=== PATIENT | male | born 1990 | race Caucasian/White ===

== ENCOUNTER 2017-12-03 19:49 | Inpatient (IN) | payer OTHER ==
[2017-12-03 21:09] LABS: ABS Basophils 0.1 10^3/ul (0-0.2); ABS Eosinophils 0.2 10^3/ul (0-0.6); ABS Monocytes 0.8 10^3/ul (0-0.8); ABS Neutrophils 3.8 10^3/ul (1.5-7.7); ABS Nucleated RBC 0 10^3/ul; Eosinophil % 2.4 % (0-6); Hematocrit 40 % (42-52); Hemoglobin 13.7 g/dl (14.0-18.0); Lymphocyte % 38.4 % (25-47); Mean Corpuscular HGB Conc 34 g/dl (31-36); Mean Corpuscular Hemoglobin 29 pg (27-31); Mean Corpuscular Volume 86 fL (80-94); Mean Platelet Volume 8 um3 (7.4-10.4); Nucleated Red Blood Cells % 0; Platelet Count 274 10^3/ul (150-450); Red Blood Count 4.66 10^6/ul (4.0-5.4); Red Cell Distribution Width 13 % (10.5-15); White Blood Count 7.8 10^3/ul (3.5-10.8)
[2017-12-03 21:29] LABS: EGFR Non-African American 91.4 (>60)
--- NOTE | 2017-12-04 06:30 | ED ---
Jameel Truong Tecjoon, scribed for Mare Osborne MD on 12/04/17 at 0629 . Progress - Consult/PCP Time Called: 04:25 Course/Dx - Course Course Of Treatment: Patient requires a MH reevaluation. Patient will be signed out to Dr. Caba at end of shift. - Diagnoses Provider Diagnoses: Suicidal ideations The documentation as recorded by the Jameel trotter Tecjoon accurately reflects the service I personally performed and the decisions made by [place] sharma Abdul, MD.
[2017-12-04] MEDS ORDERED: Gabapentin CAP(*) 300 MG PO ONE (09:43)
[2017-12-04] MEDS ORDERED: Nicotine GUM* 2 MG ONE (10:12)
[2017-12-04] MEDS ORDERED: FLUoxetine CAP* 10 MG PO ONE (11:23)
[2017-12-04] MEDS ORDERED: Acetaminophen TAB* 325 MG PO ONE (13:37)
--- NOTE | 2017-12-04 20:29 | HP ---
HISTORY AND PHYSICAL: DATE OF ADMISSION: 12/04/17 IDENTIFYING DATA: Nahum is a 27-year-old single unemployed male who came to the emergency room department last night complaining of suicidal ideations and a vague plan. He was at [facility] for a rehab program, but did not like it and became suicidal. This is his first psychiatric hospitalization in this hospital. CHIEF COMPLAINT: "I have been contemplating to overdose and kill myself, but I don't want to do it." HISTORY OF PRESENT ILLNESS: Nahum was discharged from [facility]'s inpatient unit a couple of weeks ago and was sent to [facility] for drug and alcohol rehab program. Nahum has an extensive history of heroin dependence and had gone through at least 11 inpatient rehabs and failed each time. He also reports of ongoing mood problems with both ups and downs as he describes. There are times that he becomes hypomanic with racing thoughts, impulsive intrusive behaviors and at times going back to doing IV heroin at the height of his hypomanic episode. These episodes are always followed by symptoms reminiscent of depression, which he has been experiencing since he was discharged from [facility]'s inpatient unit. He thinks his medications are not adequate enough to control his mood symptoms. Nahum reports that his life has been a mess with loss of money, which he gets as a student loan. His girlfriend left him because she could not handle him and he has no one to turn to or nowhere to go. In that respect, he does not see any purpose of living any longer. PAST PSYCHIATRIC HISTORY: At least 1 prior psychiatric hospitalization at [facility] a couple of weeks ago and 11 inpatient drug and alcohol rehabs. He was discharged on 30 mg of Prozac and 5 mg of Zyprexa. PAST MEDICAL HISTORY: Unremarkable. ALLERGIES: No known drug allergies. FAMILY HISTORY: Unremarkable. PERSONAL AND SOCIAL HISTORY: Nahum graduated from high school and entered college. He almost finished one semester; however, because of his drug problem he had to discontinue. He had a relationship, which also is in jeopardy because of his intense mood dysregulation and drug use. He denies any legal problems. PHYSICAL EXAMINATION Physical exam was not done as I have evaluated him in the flex space and I do not see any documented physical exam done in the emergency room either, so that needs to be taken care of when he comes to the unit by someone during the day time. LABORATORY DATA: Included CBC with differential, CMP, urinalysis, urine drug screen; everything is unremarkable. Tox screen was negative for drugs and alcohol. SUMMARY: This 27-year-old male with extensive history of IV drug use , 11 failed inpatient rehab programs and at least one known psychiatric hospitalization last month at [facility], presented to the [facility] ED from [facility] complaining of suicidal ideation and a plan. DIAGNOSTIC IMPRESSION: MENTAL HEALTH DIAGNOSIS: Unspecified mood disorder, rule out bipolar disorder, opiate use disorder, rule out substance-induced mood disorder. TREATMENT PLAN: I finally decided to admit Nahum to the inpatient psychiatric unit for his safety, diagnostic clarification and an appropriate discharge plan. My plan is to continue him on his discharge medications from [facility] and titrate the doses up as he tolerates. His code status will remain full. When he comes to the unit, supportive milieu, individual and group therapy will be initiated and he will be encouraged to participate. In my opinion, with good control of his mood symptoms he might be able to participate in an appropriate rehab program, which should be longer than what he had in the past. [id number]/CPS #: [id number]
[2017-12-04] MEDS ORDERED: Gabapentin CAP(*) 300 MG ONE (22:33)
[2017-12-04] MEDS ORDERED: OLANzapine TAB* 10 MG ONE (22:33)
[2017-12-04] MEDS ORDERED: Mouth Piece, Nicotine* 1 EACH CARTRIDGE INH SCH (22:53)
[2017-12-04] MEDS ORDERED: Al Hydrox/Mg Hydrox/Simet LIQ* 30 ML UDC PO PRN (22:53)
[2017-12-04] MEDS ORDERED: Mouth Piece, Nicotine* 1 EACH CARTRIDGE ONE (23:25)
[2017-12-04] MEDS: Nicotine Inhaler* 10 MG AMP INH PRN (23:26)
[2017-12-05] MEDS: Gabapentin CAP(*) 300 MG PO SCH ×4 (08:30→21:22)
[2017-12-05] MEDS: FLUoxetine CAP* 20 MG PO SCH (08:30)
[2017-12-05] MEDS: Vitamin THERAPEUTIC TAB PO SCH (08:30)
[2017-12-05] MEDS: Nicotine PATCH 21 MG/24 HR* PATCH TRANSDERM SCH (08:31)
--- NOTE | 2017-12-05 13:12 | PN ---
Subjective - Subjective Service Type: 21328 Hosp care 25 min moderate complexity Subjective: Met with patient to introduce myself and admit him to my service. He is tangential and distractible. He reports frustration with [facility] for boring lectures and ADHD not be treated. He states he had a first dose of Vivitrol IM on November 04. He states this has been helpful in regards to cravings for heroin. He reports his last heroin use was oct 11, his last crack cocaine use was on nov 12 and last marijuana use on nov 13. We discuss his motivation for recovery, which is relatively weak. Physical Exam completed with Karen Galvez ophthalmic medical technician present: PHYSCIAL EXAM: GENERAL APPEARANCE: Well appearing and well nourished. HEENT: Head and face, normal head and face inspection. Eyes, positive EOMI, PERRL. Conjunctivae clear. NECK: Supple. Full ROM. Trachea midline. RESPIRATORY: Lung sounds clear to auscultation. Breath sounds present. CARDIOVASCULAR: Heart, regular rate and rhythm. Pulses are symmetrical in both upper and lower extremities. MUSCULOSKELETAL: Normal strength. ROM intact. NEUROLOGICAL: Normal sensory, motor intact. Alert and oriented x3 and normal gait. Cranial nerves II-XII grossly intact. Cerebellar function intact. SKIN: Warm, dry. Color reflects adequate perfusion. Objective - Appearance Appearance: Well Developed/Nourished Dysmorphic Features: No Hygiene: Normal Grooming: Well Kept - Behavior Psychomotor Activities: Normal Exhibits Abnormal Movement: No - Attitude and Relatedness Attitude and Relatedness: Superficially Cooperative Eye Contact: Fair - Speech Quality: Unpressured Latencies: Normal Quantity: Appropriate - Mood Patient's Decription of Mood: "Okay" - Affect Observed Affect: Expansive Affect Consistent with: Euphoria - Thought Process Patient's Thought Process: Tangential Thought Content: Yes Suicidal Planning, No Passive Wish, No Homicidal Ideation, No Paranoid Ideation - Sensorium Experiencing Hallucinations: No, Sensorium is Clear Type of Hallucinations: Visual: No, Auditory: No, Command: No - Level of Consciousness Level of Consciousness: Alert - Impulse Control Impulse Control: Tenuous - Insight and Judgement Insight and Judgement: Fair - Group Participation Particating in Group Activities: Yes - Medication Management Medication Management Adherence: Yes Assessment - Assessment Merits Inpatient Hospitalization: For Immediate Safety, For Stabilization Inpatient DSM-IV Dx: unspecified bipolar d/o; opiate use d/o, in early remission ; cocaine use d/o, in early remission; cannabis use d/o, in early remission; tobacco use d/o Clinical Impression: 27yo white male, single, resident of [facility] who presented to ED with suicidal ideation. He is responding well to medication titration and will be discharge back to [facility] when stabilized. Plan - Plan Treatment Plan: Name: VIRY GUPTA Birthdate: 1990 [id number] Continued Medication Management: Continue Outpt Medication Medications: Current Medications Acetaminophen (Tylenol Tab*) 650 mg PO Q4H PRN PRN Reason: PAIN or TEMP > 101 F Al Hydrox/Mg Hydrox/Simethicone (Maalox Plus*) 30 ml PO Q4H PRN PRN Reason: INDIGESTION Device (Nicotine Mouth Piece*) 1 each INH .CARTRIDGE [facility] Last Admin: 12/04/17 23:26 Dose: 1 each Fluoxetine HCl (Prozac Cap*) 40 mg PO DAILY [facility] Last Admin: 12/05/17 08:30 Dose: 40 mg Gabapentin (Neurontin Cap(*)) 300 mg PO TID [facility] Last Admin: 12/05/17 13:03 Dose: 300 mg Multivitamins (Theragran Tab*) 1 tab PO DAILY [facility] Last Admin: 12/05/17 08:30 Dose: 1 tab Nicotine (Nicotine Inhaler*) 10 mg INH Q2H PRN PRN Reason: CRAVING Last Admin: 12/04/17 23:26 Dose: 10 mg Nicotine (Nicotine Patch 21 Mg/24 Hr*) 1 patch TRANSDERM DAILY [facility] Last Admin: 12/05/17 08:31 Dose: 1 patch Nicotine Polacrilex (Nicotine Gum*) 2 mg PO Q2H PRN PRN Reason: CRAVING Olanzapine (Zyprexa Tab*) 10 mg PO BEDTIME [facility] Pharmacy Profile Note (Nicotine Patch Removal Note*) 1 note PATCH OFF 2100 [facility] - Discharge Plan Discharge Plan: Drug/Alcohol Rehab Outpatient Program: [facility] inpatient
[2017-12-05] MEDS ORDERED: Naltrexone TAB* 50 MG TAB PO SCH (14:00)
[2017-12-05] MEDS ORDERED: Naltrexone INJ 380 MG IM ONE (15:00)
[2017-12-05] MEDS: OLANzapine TAB* 10 MG PO SCH ×2 (15:52→21:22)
[2017-12-05] MEDS: Acetaminophen TAB* 325 MG PO PRN (16:27)
[2017-12-05] MEDS: Nicotine GUM* 2 MG PO PRN (17:24)
[2017-12-05] MEDS: Nicotine Patch Removal NOTE PATCH OFF SCH (21:21)
[2017-12-05] MEDS: Nicotine Inhaler* 10 MG AMP INH PRN (21:23)
[2017-12-06] MEDS: Gabapentin CAP(*) 300 MG PO SCH ×3 (08:41→20:18)
[2017-12-06] MEDS: Nicotine PATCH 21 MG/24 HR* PATCH TRANSDERM SCH (08:42)
[2017-12-06] MEDS: FLUoxetine CAP* 20 MG PO SCH (08:42)
[2017-12-06] MEDS: Vitamin THERAPEUTIC TAB PO SCH (08:42)
--- NOTE | 2017-12-06 12:02 | PN ---
Subjective - Subjective Service Type: 42311 Hosp care 15 min low complexity Subjective: Patient reports "When i'm alone, I get really down." He endorses automatic negative thoughts. He states he is lamenting all of the things he lost since relapsing. 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 He states he would like to continue with recovery "until I like it." He has plans to complete [facility] then move to a retirement house near [place]. Objective - Appearance Appearance: Well Developed/Nourished Dysmorphic Features: No Hygiene: Normal Grooming: Well Kept - Behavior Psychomotor Activities: Normal Exhibits Abnormal Movement: No - Attitude and Relatedness Attitude and Relatedness: Cooperative Eye Contact: Good - Speech Quality: Unpressured Latencies: Normal Quantity: Appropriate - Mood Patient's Decription of Mood: "Okay" - Affect Observed Affect: Good Affect Consistent with: Euthymia - Thought Process Patient's Thought Process: Coherent, Goal Directed Thought Content: No Passive Wish, No Suicidal Planning, No Homicidal Ideation, No Paranoid Ideation - Sensorium Experiencing Hallucinations: No, Sensorium is Clear Type of Hallucinations: Visual: No, Auditory: No, Command: No - Level of Consciousness Level of Consciousness: Alert Orientation: Yes Intact, Yes Orientated to Time, Yes Orientated to Place, Yes Orientated to Person - Impulse Control Impulse Control: Tenuous - Insight and Judgement Insight and Judgement: Fair - Group Participation Particating in Group Activities: Yes - Medication Management Medication Management Adherence: Yes Assessment - Assessment Merits Inpatient Hospitalization: For Immediate Safety, For Stabilization, Consolidate Improvements Inpatient DSM-IV Dx: unspecified bipolar d/o; opiate use d/o, in early remission ; cocaine use d/o, in early remission; cannabis use d/o, in early remission; tobacco use d/o Clinical Impression: 27yo white male, single, resident of [facility] who presented to ED with suicidal ideation. He is responding well to medication titration and will be discharge back to [facility] when stabilized. Plan - Plan Treatment Plan: Name: VIRY GUPTA Birthdate: 1990 [id number] continue acute intensive psychiatric treatment. decrease to q30min observation and allow staff pass and computer use. Continued Medication Management: Continue Outpt Medication Medications: Current Medications Acetaminophen (Tylenol Tab*) 650 mg PO Q4H PRN PRN Reason: PAIN or TEMP > 101 F Last Admin: 12/05/17 16:27 Dose: 650 mg Al Hydrox/Mg Hydrox/Simethicone (Maalox Plus*) 30 ml PO Q4H PRN PRN Reason: INDIGESTION Device (Nicotine Mouth Piece*) 1 each INH .CARTRIDGE [facility] Last Admin: 12/04/17 23:26 Dose: 1 each Fluoxetine HCl (Prozac Cap*) 40 mg PO DAILY [facility] Last Admin: 12/06/17 08:42 Dose: 40 mg Gabapentin (Neurontin Cap(*)) 300 mg PO TID [facility] Last Admin: 12/06/17 08:41 Dose: 300 mg Multivitamins (Theragran Tab*) 1 tab PO DAILY [facility] Last Admin: 12/06/17 08:42 Dose: 1 tab Nicotine (Nicotine Inhaler*) 10 mg INH Q2H PRN PRN Reason: CRAVING Last Admin: 12/05/17 21:23 Dose: 10 mg Nicotine (Nicotine Patch 21 Mg/24 Hr*) 1 patch TRANSDERM DAILY [facility] Last Admin: 12/06/17 08:42 Dose: 1 patch Nicotine Polacrilex (Nicotine Gum*) 2 mg PO Q2H PRN PRN Reason: CRAVING Last Admin: 12/05/17 17:24 Dose: 2 mg Olanzapine (Zyprexa Tab*) 10 mg PO BEDTIME [facility] Last Admin: 12/05/17 21:22 Dose: 10 mg Pharmacy Profile Note (Nicotine Patch Removal Note*) 1 note PATCH OFF 2100 [facility] Last Admin: 12/05/17 21:21 Dose: 1 note - Discharge Plan Discharge Plan: Drug/Alcohol Rehab Outpatient Program: [facility] inpatient
[2017-12-06] MEDS: Acetaminophen TAB* 325 MG PO PRN (12:16)
[2017-12-06] MEDS: OLANzapine TAB* 10 MG PO SCH (20:19)
[2017-12-06] MEDS: Nicotine GUM* 2 MG PO PRN (20:43)
[2017-12-06] MEDS: Nicotine Inhaler* 10 MG AMP INH PRN (20:43)
[2017-12-06] MEDS: Nicotine Patch Removal NOTE PATCH OFF SCH (21:36)
[2017-12-07] MEDS: Gabapentin CAP(*) 300 MG PO SCH ×3 (08:37→20:00)
[2017-12-07] MEDS: Vitamin THERAPEUTIC TAB PO SCH (08:38)
[2017-12-07] MEDS: FLUoxetine CAP* 20 MG PO SCH (08:38)
[2017-12-07] MEDS: Nicotine PATCH 21 MG/24 HR* PATCH TRANSDERM SCH (08:39)
--- NOTE | 2017-12-07 13:08 | PN ---
MHU: Group Therapy Note - Service Type Service Type: 28154 Group Psychotherapy - Cognitive Behavioral Group Therapy ( CBT):Patient was attentive and participatory in CBT programming this morning, and remained in good behavioral control. Patient expressed positive insights regarding relevant treatment interventions and goals.
[2017-12-07] MEDS: Nicotine Inhaler* 10 MG AMP INH PRN ×3 (13:32→20:01)
--- NOTE | 2017-12-07 16:31 | PN ---
Subjective - Subjective Service Type: 87832 Hosp care 15 min low complexity Subjective: Patient reports having a good visit with his mother the previous evening. He states they discussed the uncertainty of the appropriateness of current rehab. Tourist Home Keeper encouraged patient to participate fully and contemplate obstacles to recovery. He states that romantic relationships and finances are often triggers for relapse. He expresses he is likely ready to return to [facility] on . Objective - Appearance Appearance: Well Developed/Nourished Dysmorphic Features: No Hygiene: Normal Grooming: Well Kept - Behavior Psychomotor Activities: Normal Exhibits Abnormal Movement: No - Attitude and Relatedness Attitude and Relatedness: Cooperative Eye Contact: Good - Speech Quality: Unpressured Latencies: Normal Quantity: Appropriate - Mood Patient's Decription of Mood: "Good" - Affect Observed Affect: Good Affect Consistent with: Euthymia - Thought Process Patient's Thought Process: Coherent, Goal Directed Thought Content: No Passive Wish, No Suicidal Planning, No Homicidal Ideation, No Paranoid Ideation - Sensorium Experiencing Hallucinations: No, Sensorium is Clear Type of Hallucinations: Visual: No, Auditory: No, Command: No - Level of Consciousness Level of Consciousness: Alert Orientation: Yes Intact, Yes Orientated to Time, Yes Orientated to Place, Yes Orientated to Person - Impulse Control Impulse Control: Intact - Insight and Judgement Insight and Judgement: Good - Group Participation Particating in Group Activities: Yes - Medication Management Medication Management Adherence: Yes Assessment - Assessment Merits Inpatient Hospitalization: For Immediate Safety, For Stabilization, Consolidate Improvements Inpatient DSM-V Dx: F31.81 Clinical Impression: 27yo white male, single, resident of [facility] who presented to ED with suicidal ideation. He is responding well to medication titration and will be discharge back to [facility] when stabilized. Plan - Plan Treatment Plan: Name: VIRY GUPTA Birthdate: 1990 [id number] continue acute intensive psychiatric treatment. decrease to q30min observation and allow staff pass and computer use. Continued Medication Management: Continue Outpt Medication Medications: Current Medications Acetaminophen (Tylenol Tab*) 650 mg PO Q4H PRN PRN Reason: PAIN or TEMP > 101 F Last Admin: 12/06/17 12:16 Dose: 650 mg Al Hydrox/Mg Hydrox/Simethicone (Maalox Plus*) 30 ml PO Q4H PRN PRN Reason: INDIGESTION Device (Nicotine Mouth Piece*) 1 each INH .CARTRIDGE [facility] Last Admin: 12/04/17 23:26 Dose: 1 each Fluoxetine HCl (Prozac Cap*) 40 mg PO DAILY [facility] Last Admin: 12/07/17 08:38 Dose: 40 mg Gabapentin (Neurontin Cap(*)) 300 mg PO TID [facility] Last Admin: 12/07/17 13:33 Dose: 300 mg Multivitamins (Theragran Tab*) 1 tab PO DAILY [facility] Last Admin: 12/07/17 08:38 Dose: 1 tab Nicotine (Nicotine Inhaler*) 10 mg INH Q2H PRN PRN Reason: CRAVING Last Admin: 12/07/17 13:32 Dose: 10 mg Nicotine (Nicotine Patch 21 Mg/24 Hr*) 1 patch TRANSDERM DAILY [facility] Last Admin: 12/07/17 08:39 Dose: 1 patch Nicotine Polacrilex (Nicotine Gum*) 2 mg PO Q2H PRN PRN Reason: CRAVING Last Admin: 12/06/17 20:43 Dose: 2 mg Olanzapine (Zyprexa Tab*) 10 mg PO BEDTIME [facility] Last Admin: 12/06/17 20:19 Dose: 10 mg Pharmacy Profile Note (Nicotine Patch Removal Note*) 1 note PATCH OFF 2100 [facility] Last Admin: 12/06/17 21:36 Dose: 1 note - Discharge Plan Discharge Plan: Drug/Alcohol Rehab Outpatient Program: [facility]
[2017-12-07] MEDS: Nicotine Patch Removal NOTE PATCH OFF SCH (20:00)
[2017-12-07] MEDS: OLANzapine TAB* 10 MG PO SCH (20:00)
[2017-12-08 07:59] VITALS: BP 109/67
[2017-12-08] MEDS: Vitamin THERAPEUTIC TAB PO SCH (08:29)
[2017-12-08] MEDS: Gabapentin CAP(*) 300 MG PO SCH (08:34)
[2017-12-08] MEDS: Nicotine PATCH 21 MG/24 HR* PATCH TRANSDERM SCH (08:34)
[2017-12-08] MEDS: FLUoxetine CAP* 20 MG PO SCH (08:35)
--- NOTE | 2017-12-10 19:53 | ED ---
Megha Truong Rebecca, scribed for Vincent Peres MD on 12/03/17 at 2030 . Psychiatric Complaint - HPI Summary HPI Summary: Pt is a 27 y/o M BIBA from [facility] who presents to ED c/o depression and SIs with a plan for a few days. Pt states that he has a plan to use drugs to commit suicide, though they are not readily available, so he feels as though he wants to hang himself. Sx aggravated and alleviated by nothing, with no known catalyst. Denies hallucinations. Prior suicide attempt in 2014 by hanging. Reports he was D/C from the psychiatric unit at [facility] on either 11/21 or 11/22 (about 2 weeks ago) where he was being treated for suicidal ideations. Takes Prozac, Zyprexa and Gabapentin which have been treating depression well until a few days ago. FHx depression. SHx IVDA, using heroin and cocaine, last using on 11/13/2017 and last drinking EtOH on 10/04/2017. - History Of Current Complaint Chief Complaint: EDMentalHealth Hx Obtained From: Patient Onset/Duration: Lasting Days, Still Present Character: Depressed Aggravating Factor(s): Nothing Alleviating Factor(s): Nothing Has Suicidal: Reports: Thoughts, With A Plan, Has Prior Attempt(s) PMH/Surg Hx/FS Hx/Imm Hx Endocrine/Hematology History: Reports: Other Endocrine/Hematological Disorders - Hx hypoglycemia Respiratory History: Reports: Hx Asthma Psychiatric History: Reports: Hx Anxiety, Hx Depression, Hx Bipolar Disorder Infectious Disease History: No Infectious Disease History: Denies: Traveled Outside the [place] in Last 30 Days - Family History Known Family History: Positive: Cardiac Disease - Social History Alcohol Use: Occasionally Substance Use Type: Reports: Cocaine, Heroin Smoking Status (MU): Light Every Day Tobacco Smoker Review of Systems Neurological: Other - NEGATIVE: Hallucinations Positive: Depressed, Other - SIs with a plan All Other Systems Reviewed And Are Negative: Yes Physical Exam - Summary Physical Exam Summary: Appearance: Well-appearing, Well-nourished Skin: Warm, Dry, No rash Eyes: Normal, PERRL, EOMI, sclera anicteric ENT: Normal Neck: Supple, nontender Respiratory: Clear to auscultation Cardiovascular: S1, S2, no murmur, no rub, no gallop Abdomen: Soft, nontender, no organomegaly Bowel sounds: Present Musculoskeletal: Normal, Strength/ROM Intact, no edema, pulses symmetrical Neurological: Normal, A&Ox3, cranial nerves II-XII WNL, follows commands, gait not tested, sensation intact to pin and light touch Psychiatric: Slightly reticent, freely admits to SIs, has a plan, attempted suicide in late October Triage Information Reviewed: Yes Vital Signs On Initial Exam: Initial Vitals Temp Pulse Resp BP Pulse Ox 98 F 82 20 132/78 97 12/03/17 19:57 12/03/17 19:57 12/03/17 19:57 12/03/17 19:57 12/03/17 19:57 Vital Signs Reviewed: Yes Diagnostics - Vital Signs Vital Signs Temp Pulse Resp BP Pulse Ox 12/03/17 19:57 98 F 82 20 132/78 97 - Laboratory Result Diagrams: 12/03/17 20:55 12/03/17 20:55 Lab Statement: Any lab studies that have been ordered have been reviewed, and results considered in the medical decision making process. Course/Dx - Course Assessment/Plan: Pt is a 27 y/o M BIBA from [employer] who presents to ED c/o depression and SIs with a plan for a few days. Pt states that he has a plan to use drugs to commit suicide, though they are not readily available, so he feels as though he wants to hang himself. Sx aggravated and alleviated by nothing, with no known catalyst. Denies hallucinations. Prior suicide attempt in 2014 by hanging. Reports he was D/C from the psychiatric unit at [facility] on either 11/21 or 11/22 (about 2 weeks ago) where he was being treated for suicidal ideations. Takes Prozac, Zyprexa and Gabapentin which have been treating depression well until a few days ago. FHx depression. SHx IVDA, using heroin and cocaine, last using on 11/13/2017 and last drinking EtOH on 2016. Pt will be tati dout to Dr. Osborne, pending dispo, awaiting [facility]. - Differential Dx/Clinical Impression Provider Diagnosis: Suicidal ideations Discharge - Discharge Plan Condition: Fair Disposition: OTHER Discharge Disposition Comment: pt will be signed out to Dr. Osborne, pending dispo , awaiting [facility] The documentation as recorded by the scribeMegha Rebecca accurately reflects the service I personally performed and the decisions made by me, Vincent Peres MD.
--- NOTE | 2017-12-13 00:34 | DS ---
CC: [facility] DISCHARGE SUMMARY: DATE OF ADMISSION: 12/04/17 DATE OF DISCHARGE: 12/08/17 SUPERVISING PSYCHIATRIST: Dr. Chandler Amaya. DISCHARGE DIAGNOSES: 1. Bipolar II disorder 2. Cannabis use disorder. 3. Cocaine use disorder. 4. Opioid use disorder. 5. Tobacco use disorder. CONDITION AT TIME OF DISCHARGE: Improved. The patient is euthymic and interactive with select staff and peers. He continues to be motivated for substance use treatment. He is somewhat ambivalent abo ut his current location; however, he is receptive to suggestions to complete current location. He st ates he would like to also step down to [facility] after completing [employer] and he identifies [facility] in the [facility] for that. He reports current medication compliance. He states understanding that he is due for his next Vivitrol injection on 01/02/18. MENTAL STATUS EXAM AT THE TIME OF DISCHARGE: The patient is a 27-year-old white male, muscular built . He is well groomed, wearing his own clothing. He is alert and oriented x3. His eye contact is go od. His speech is soft and articulate. His concentration is good. His memory is 3/3. His thought process is logical, goal directed, and coherent. His thought content is negative for SI, SIB urges. There is no evidence of overt thought disorder. His insight is fair to good and his judgment is goo d. His impulse control is good in structured setting. Fund of knowledge is excellent. DISCHARGE INSTRUCTIONS: Given to the patient: A. Medications: He will continue on: 1. Fluoxetine 40 mg daily. 2. Olanzapine 10 mg at bedtime. 3. As stated above, he will continue Vivitrol injection 380 mg IM q. month and his next injection is due on 01/02/18. The patient requested nicotine replacement and nicotine gum inhaler and patch were all electronically prescribed along with olanzapine and fluoxetine to [facility] in [facility]. These will be transported via carrier to [facility] inpatient. He will resume medications previously prescribed by [facility]: 1. Acetaminophen. 2. Aspirin. 3. Bismuth. 4. Diphenhydramine. 5. Docusate. 6. Gabapentin. 7. Guanfacine. 8. Ibuprofen. 9. Milk of magnesia. 10. Melatonin. 11. Multivitamin. 12. MiraLAX. 13. Saline nasal spray. B. Diet: Regular. C. Activities: As tolerated. Tobacco cessation provided to the patient. Studies pending at the ti me of discharge. I had ordered blood draw for hemoglobin and lipid profile, but these were canceled and not done before the patient was discharged. D. Followup care. The patient will follow up at [facility] and recommended to continue until co mpletion and follow after care recommendations including sober housing, mental health treatment, and outpatient substance abuse treatment. E. Substance abuse followup. The patient is an active client of [facility] in [place]. HOSPITAL COURSE: Part-A. Reason for admission: Nahum is a 27-year-old, single, unemployed, [place] male, who came to the emergency department with reports of suicidal ideation and a vague plan. Pedro serna was admitted to the adult behavioral services unit on voluntary status. The code status was full. He participated in psychiatric interview by on-call psychiatrist. [facility] along with history of mood lability and ADHD. He is currently a resident of [facility] and was ambivalent about continuing with that treatment program. Part-B. Psychiatric treatment rendered: The patient was admitted on adult behavioral services unit. He was encouraged to participate in supportive milieu, individual sessions with staff and psychoedu cational groups. He met with this inspector automatic typewriter, who was assigned to him on the first day of treatment. He reported he was cooperative with psychiatric interview. We discussed motivation and barriers to sub stance use recovery. He identified he was due for his monthly Vivitrol injection. The patient's phy sical exam was completed by this inspector automatic typewriter. The on-call psychiatrist had increased his olanzapine. The patient reported improvement with that dose. He was in behavioral control and he was safe on all checks. He denied suicidal ideation or urges for self-harm. He reported improvement in mood and sleep. He was decreased to q.30-minute observation a nd allowed staff pass. Social Work coordinated with [facility] and verified that he is on target to return to the treatment facility. On , 12/08/17, the patient reported readiness for discharge and to return to [facility]. Again, he had identified motivation for recovery as well as barriers. He states willingness to with his support, both formally and informally. JESSEE MARION, STONE SPREADER OPERATOR [id number]/[facility] #: [id number]
== END 2017-12-08 11:00 | DRG 753 ==
LOC: ED 19:49 → BSU 12-04 22:46
PROVIDERS: ADMIT Psychiatry & Neurology Psychiatry; ATTEND Psychiatry & Neurology Psychiatry
PROC: GZHZZZZ Group Psychotherapy (ICD-10-PCS; principal; 2017-12-07)
DX: F31.81 Bipolar II disorder (principal); R45.851 Suicidal ideations; F41.9 Anxiety disorder, unspecified; J45.909 Unspecified asthma, uncomplicated; F17.200 Nicotine dependence, unspecified, uncomplicated; F11.90 Opioid use, unspecified, uncomplicated; F39 Unspecified mood [affective] disorder; F12.90 Cannabis use, unspecified, uncomplicated; F14.90 Cocaine use, unspecified, uncomplicated; Z91.5 Personal history of self-harm; Z82.49 Family history of ischemic heart disease and other diseases of the circulatory system; Z72.89 Other problems related to lifestyle
CPT/HCPCS: 36415; 80053; 80307; 80320; 84443; 85025; 90853; 99222; 99231; 99232; 99238; 99283; A9270-GY; G0480; J2315